=== PATIENT | male | born 1970 | race Caucasian/White ===

== ENCOUNTER 2017-03-20 00:40 | Emergency (ER) | payer OTHER ==
[2017-03-20 05:18] VITALS: BP 130/88
== END 2017-03-20 05:18 | disposition home or self-care (01) ==
LOC: ED 00:40
DX: J40 Bronchitis, not specified as acute or chronic (principal)
CPT/HCPCS: J7613

== ENCOUNTER 2018-05-11 19:34 | Emergency (ER) | payer OTHER ==
[~2018-05-11] VITALS: Ht 175.3 cm; Wt 85.3 kg
[2018-05-11 19:46] VITALS: Ht 175.3 cm; Wt 85.3 kg
[2018-05-11 22:19] LABS: BASOPHIL % 0.1 % (0-2); PLATELET COUNT 236 x10^3mcL (130-400); RED CELL DISTRIBUTION WIDTH 12.5 % (11.5-14.5)
[2018-05-11 22:29] LABS: CALCIUM 8.4 mg/dL (8.5-10.1); CARBON DIOXIDE 28.9 mmol/L (21-32); CHLORIDE SERUM 101 mmol/L (98-107); GFR1 > 60 mL/min; GLUCOSE SERUM 98 mg/dL (74-106); SODIUM SERUM 137 mmol/L (136-145)
[2018-05-11 22:34] LABS: ALBUMIN 3.5 g/dL (3.4-5.0); ALKALINE PHOSPHATASE 48 U/L (46-116); ALT/SGPT 21 U/L (16-63); AST/SGOT 25 U/L (15-37); BILIRUBIN TOTAL 0.6 mg/dL (0.20-1.00); LIPASE 101 IU/L (73-393); TOTAL PROTEIN, SERUM 7.2 g/dL (6.4-8.2)
[2018-05-11 23:08] LABS: microscopic required? NO
[2018-05-11 23:18] LABS: urine erythrocyte NEGATIVE (NEGATIVE)
[2018-05-12 01:20] VITALS: BP 137/68
== END 2018-05-12 01:20 | disposition home or self-care (01) ==
LOC: ED 19:34
PROVIDERS: Emergency Medicine
DX: R10.84 Generalized abdominal pain (principal); R11.2 Nausea with vomiting, unspecified; R19.7 Diarrhea, unspecified; E86.0 Dehydration
CPT/HCPCS: J2270; J2405; J7030

== ENCOUNTER 2019-03-30 13:31 | Emergency (ER) | payer OTHER ==
[~2019-03-30] VITALS: Ht 177.8 cm; Wt 84.0 kg
[2019-03-30 13:48] VITALS: Ht 177.8 cm; Wt 84.0 kg
[2019-03-30 14:27] VITALS: BP 123/73
== END 2019-03-30 14:27 | disposition home or self-care (01) ==
LOC: ED 13:31
DX: S91.332A Puncture wound without foreign body, left foot, initial encounter (principal); X58.XXXA Exposure to other specified factors, initial encounter; Y93.89 Activity, other specified; Y92.89 Other specified places as the place of occurrence of the external cause; Y99.8 Other external cause status
CPT/HCPCS: 90715